=== PATIENT | male | born 1995 | race Caucasian/White ===

== ENCOUNTER 2023-10-04 14:23 | Emergency (ER) | payer OTHER ==
[2023-10-04 14:39] VITALS: BP 137/73; O2SAT 99
--- NOTE | 2023-10-04 15:03 | ED Physician Documentation ---
PD HPI MALE - Stated complaint Stated Complaint: - Chief complaint Chief Complaint: Abd Pain - History obtained from History obtained from: Patient - Additional information Additional information: For 2 days he has had right testicular pain and developed swelling today. It is worse when he is up and around walking especially up stairs. It has really minimal at rest or just sitting. There is no trauma. No fever. No dysuria. He is not sexually active. He was seen at urgent care yesterday without specific diagnosis, sounds like they were going to try to schedule an ultrasound which has not been done. PD PAST MEDICAL HISTORY - Past Medical History Past Medical History: No - Past Surgical History Past Surgical History: No - Present Medications Home Medications: Ambulatory Orders Medication Instructions Recorded Confirmed No Known Home Medications 10/04/23 10/04/23 - Allergies Allergies/Adverse Reactions: Allergies Allergy/AdvReac Type Severity Reaction Status Date / Time No Known Drug Allergies Allergy Verified 10/04/23 14:31 - Social History Does the pt smoke?: No Smoking Status: Never smoker PD ED PE NORMAL - Vitals Vital signs reviewed: Yes - General General: Alert and oriented X 3, No acute distress - Abdomen Abdomen: Non tender - Male Male : Other (The right testicle is nontender. Normal lie, normal cremaster reflex. There is swelling of the epididymis focally. No hernia mass.) - Neuro Neuro: Alert and oriented X 3 Results - Vitals Vitals: Vital Signs - 24 hr 10/04/23 14:26 Temperature 36.4 C L Heart Rate 72 Respiratory 16 Rate Blood Pressure 137/73 H O2 Saturation 99 Oxygen O2 Source Room air - Labs Labs: Laboratory Tests 10/04/23 15:27 Urine Color YELLOW Urine Clarity CLEAR Urine pH 6.5 Ur Specific [place] 1.025 Urine Protein NEGATIVE Urine Glucose (UA) NEGATIVE Urine Ketones NEGATIVE Urine Occult Blood NEGATIVE Urine Nitrite NEGATIVE Urine Bilirubin NEGATIVE Urine Urobilinogen 0.2 (NORMAL) Ur Leukocyte Esterase NEGATIVE Ur Microscopic Review NOT INDICATED Urine Culture Comments NOT INDICATED - Rads (name of study) Testicular sono Relevant Findings:: Prelim report reviewed, Final report received PD Medical Decision Making - ED course ED course: 27-year-old gentleman with right testicular pain, not consistent with torsion. Ultrasound showing varicocele and microcalcifications. Follow-up with urology advised. Departure - Departure Disposition: Home, Self Care Clinical Impression: Varicocele Condition: Good Record reviewed to determine appropriate education?: Yes Instructions: ED Varicocele Follow-Up: Andrei Blanco MD [Provider Admit Priv/Credential] - Comments: You were seen today for right testicular pain, on ultrasound you have what is called a varicocele. This is an abnormal vein that causes a sensation of pain and swelling to the testicle. Sometimes these require no treatment, sometimes t hese do require treatment and would recommend following up with a urologist for evaluation of this. 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 Return for new or worsening symptoms. Forms: PCP List Discharge Date/Time: 10/04/23 16:13
[2023-10-04 15:43] LABS: BILIRUBIN,URINE NEGATIVE (NEGATIVE); GLUCOSE, URINE (UA) NEGATIVE (NEGATIVE); KETONES,URINE (UA) NEGATIVE (NEGATIVE); LEUKOCYTE ESTERASE, URINE NEGATIVE (NEGATIVE); NITRITE,URINE NEGATIVE (NEGATIVE); OCCULT BLOOD,URINE NEGATIVE (NEGATIVE); PH,URINE 6.5 PH (5.0-7.5); PROTEIN,URINE NEGATIVE (NEGATIVE); UROBILINOGEN,URINE 0.2 (NORMAL) E.U./dL (NORMAL)
[2023-10-04 15:44] LABS: CLARITY,URINE CLEAR (CLEAR)
--- NOTE | 2023-10-04 17:03 | Ultrasound Report ---
PROCEDURE: Testicle w/Doppler INDICATIONS: R testicular pain TECHNIQUE: Real-time scanning was performed of the scrotum and testicles, with image documentation. Color and p ulse Doppler interrogation was performed of both testicles. COMPARISON: None. FINDINGS: Right: Testicle is normal in size at 5.2 x 2.1 x 2.7 cm, and homogenous in echotexture. Epididymis is normal in overall size and morphology. No hydrocele. Small varicoceles. Overlying scrotal skin i s normal in thickness. A few scattered microcalcifications noted in the testicle. Left: Testicle is normal in size at 5.0 x 2.1 x 2.6 cm, and homogeneous in echotexture. Epididymis is normal in overall size and morphology. No hydrocele. No varicoceles. Overlying scrotal skin is n ormal in thickness. A few scattered microcalcifications noted in the testicle. Doppler: Color and pulse Doppler demonstrate normal and symmetric arterial flow in both testicles. IMPRESSION: 1. No sonographic evidence for testicular torsion. 2. Possible right varicocele. 3.Bilateral testicular microcalcifications. If patient does not have risk factors for testicular gurvinder gnancy, no treatment or follow-up imaging recommended. Recommend continued clinical surveillance. Reviewed by: Tutu Lowe MD on 10/04/2023 5:02 PM PDT Approved by: Tutu Lowe MD on 10/04/2023 5:02 PM PDT Station ID: [id number]
[2023-10-04 22:43] LABS: CHLAMYDIA TRACHOMATIS DNA NEGATIVE (NEGATIVE); NEISSERIA GONORRHOEAE DNA NEGATIVE (NEGATIVE); TRICHOMONAS VAGINALIS DNA NEGATIVE (NEGATIVE)
== END 2023-10-04 16:13 | disposition home or self-care (01) ==
LOC: ED 14:23
DX: I86.1 Scrotal varices (principal)
CPT/HCPCS: 81001; 81003; 87086; 87491; 87591; 87661; 93975; 99283; 99284